=== PATIENT | female | born 1980 | race Caucasian/White ===

== ENCOUNTER 2017-01-11 00:23 | Inpatient (IN) | payer OTHER ==
[~2017-01-11] VITALS: Ht 162.6 cm; Wt 96.0 kg
[~2017-01-11 00:23] MED LIST: PRENATAL-FOLIC1 EACH PO; TUMS300 MG PO
--- NOTE | 2017-01-11 08:55 | NUR ---
01/11/17 0855 Angela Haro 0847 PATIENT ARRIVES TO ROOM 103 AWAKE, DENIES PAIN OR NAUSEA.
--- NOTE | 2017-01-12 09:13 | PR ---
[facility] [address] [facility] [place], [place] [address] Signed PP Progress Notes Datetime Report Generated by CPN: 01/12/2017 09:12 SUBJECTIVE: [id number] Pain: Within normal limits Pain Comments: c/o cough with scratchy throat Nausea/Vomiting: Denies Flatus: Yes Vital Signs: [id number] Vital Signs: Reviewed; Within Normal Limits EXAM: [id number] Cardiovascular: Normal Respiratory: Normal Abdomen/Uterus: Abnormal Lochia: Normal Vulva/Perineum: Not Done Breasts: Not Done CVA Tenderness: Not Done Extremities: Normal Incision: Normal Progress: Abnormal Exam Comments: Abdomen with active BS. Fundus firm, NT @ U. H/H 9.7/27.8, WBC 7.6, plat 147k IMPRESSION/PLAN/PROCEDURES: [id number] Impression: Normal progression Other Impression: URI prob viral Other Plans: ambulate, shower, cepacol lozenges Procedures: None Progress Notes: Doing well overall. She has URI with cough but no fever. Signing Physician: Dee Dee Painting MD CC: *Electronically Signed* 01/12/17 09 DEE DEE PAINTING MD PATIENT NAME: MARJAN DAVIS PROGRESS NOTE DATE OF : 84 PHYSICIAN: DEE DEE PAINTING MD RPT #: [id number] REPORT IS CONFIDENTIAL AND NOT TO BE RELEASED WITHOUT AUTHORIZATION
--- NOTE | 2017-01-20 20:41 | OR ---
[facility] [address] [place], [place] [address] Signed DATE OF PROCEDURE: 01/11/17 SURGEON: Dee Dee Painting MD MANAGER FINANCIAL SERVICES: Oscar Malin MD PREOPERATIVE DIAGNOSES Previous section x3, labor, type 2 diabetes, undesired fertility. POSTOPERATIVE DIAGNOSES Previous section x3, labor, type 2 diabetes, undesired fertility, delivered. PROCEDURE Repeat section with low segment transverse uterine incision, bilateral salpingectomy, lysis of adhesions. ANESTHESIA: Spinal. ESTIMATED BLOOD LOSS: 700 mL. DRAINS: Murphy catheter. INDICATIONS AND FINDINGS The patient is a 36-year-old female, 6, para 3, AB 2, who was admitted at 37 and 2/7 weeks for repeat section after onset of labor. She had been admitted for observation approximately 7 hours previously and had cervical change. At the time of surgery, the lower uterine segment was extremely thin. The baby was delivered with Apgars of 8 and 9 and weight of 10 pounds 10 ounces from the ROT position via lower segment transverse uterine incision. It was a male infant. At the time of abdominal closure there was noted to be some omental adhesions to the peritoneum which required division as well. DESCRIPTION OF PROCEDURE The patient was prepped and draped in the supine position. The previous scar was removed sharply. The incision was then carried down through the fascia with the knife and the incision extended laterally with the Neil scissors. The inferior and superior fascial flaps were then created. The peritoneum was opened sharply and the incision extended superiorly and inferiorly. At this point, the Owen retractor could be placed. The uterine incision was done at the upper aspect of the peritoneal reflection. The uterine wall was extremely thin. Clear fluid was noted at delivery. The baby boy was delivered with the above findings and handed off to the pediatric staff in attendance. The placenta was removed manually. The uterus explored with a lap tape showing no remaining Electronically Signed By: DEE DEE PAINTING MD 01/20/17 2041 PATIENT NAME: MARJAN DAVIS OPERATIVE REPORT DATE OF : 84 PHYSICIAN: DEE DEE PAINTING MD REPORT #: [id number] REPORT IS CONFIDENTIAL AND NOT TO BE RELEASED WITHOUT AUTHORIZATION [facility] [address] [place] [id number] Signed fragments. The edges of the incision were identified and the uterus closed in 2 layers with 0 Monocryl. The first layer was a running locking stitch and the 2nd was a vertical imbricating stitch. The abdomen was then copiously irrigated and inspected and did appear to be hemostatic. At this point, pressure was placed against the lower segment to aid in hemostasis and the tubal ligation was performed. The patient's right tube was identified and grasped with [place] clamps. A window was placed in the mesosalpinx and the tube was removed by placing Agatha clamps across the mesosalpinx and this was divided. The medial portion of the tube was removed in the same manner. The specimen was completely removed. Free ties of 0 Vicryl were used to tie off the mesosalpinx. The same procedure was done on the patient's left side. Good hemostasis was noted. Following this, the uterine incision was re-identified and was hemostatic. The retractor was removed. The peritoneum identified. ACell graft was then laid over the uterine incision to aid in healing. The omental adhesions were primarily on the patient's right side. These were divided with the Agatha clamps and Metzenbaum scissors with free ties of 2-0 chromic placed. The peritoneum appeared to be free as did the omentum. The peritoneum was then closed with running suture of 3-0 Vicryl. The muscles were brought together with interrupted sutures of 2-0 Vicryl. Bleeding points were controlled with cautery. ACell powder was then sprinkled over the muscle to aid in healing. The fascia was then closed from each angle to the midline with running suture of 0 Vicryl. The subcutaneous tissue was irrigated and bleeding points controlled with cautery. The subcu was closed with interrupted sutures of 3-0 Vicryl. The skin was closed with kari. All sponge and needle counts were correct. She tolerated the procedure well and was taken to the recovery room in good condition. Dee Dee Painting MD PJW/Modl /[id number] cc: Oscar Malin MD Electronically Signed By: DEE DEE PAINTING MD 01/20/17 2041 PATIENT NAME: MARJAN DAVIS OPERATIVE REPORT DATE OF : 84 PHYSICIAN: DEE DEE PAINTING MD REPORT #: [id number] REPORT IS CONFIDENTIAL AND NOT TO BE RELEASED WITHOUT AUTHORIZATION
== END 2017-01-13 15:34 | disposition home or self-care (01) | DRG 766 ==
LOC: FBCO 00:23 → FBC 06:50
PROVIDERS: ADMIT Obstetrics & Gynecology
PROC: 0UB70ZZ Excision of Bilateral Fallopian Tubes, Open Approach (ICD-10-PCS; 2017-01-11)
PROC: 10D00Z1 Extraction of Products of Conception, Low, Open Approach (ICD-10-PCS; principal; 2017-01-11 07:00)
DX: O34.211 Maternal care for low transverse scar from previous cesarean delivery (principal); Z3A.37 37 weeks gestation of pregnancy; Z37.0 Single live birth; O24.420 Gestational diabetes mellitus in childbirth, diet controlled; Z28.21 Immunization not carried out because of patient refusal; O99.52 Diseases of the respiratory system complicating childbirth; J06.9 Acute upper respiratory infection, unspecified; Z30.2 Encounter for sterilization
CPT/HCPCS: 01961; 36415; 59025; 85027; 99214; C1763; J0690; J1100; J1644; J2274; J2370; J2405; J2590; J3010; J3105; J7040; J7120

== ENCOUNTER 2023-11-10 09:04 | Observation (INO) | payer OTHER ==
[~2023-11-10] VITALS: Ht 162.6 cm; Wt 70.8 kg
[2023-11-10] VITALS (7 sets, daily range): BP systolic 115–128; BP diastolic 64–76
[2023-11-10] MEDS ORDERED: ondansetron HCL 4 MG/2 ML VIAL IV ONE (09:15)
[2023-11-10] MEDS ORDERED: SODIUM CHLORIDE 0.9% 1,000 ML IV ONE (09:15)
[2023-11-10] MEDS ORDERED: METFORMIN HCL500 MG PO (09:16)
[2023-11-10] MEDS ORDERED: OMEPRAZOLE20 MG PO (09:16)
[2023-11-10] MEDS ORDERED: VITAMIN D21250 MCG PO (09:17)
[2023-11-10] MEDS ORDERED: FREESTYLE LIBR1 EAC2 MC (09:17)
[2023-11-10] MEDS ORDERED: PIOGLITAZONE HC30 MG PO (09:17)
[2023-11-10 09:21] LABS: BILIRUBIN, URINE NEGATIVE (negative); BLOOD/HGB, URINE NEGATIVE (Negative); KETONE, URINE NEGATIVE (Negative); LEUK ESTERASE, URINE NEGATIVE (negative); NITRITE, URINE NEGATIVE (negative); PH, URINE 7.5 (5-7)
[2023-11-10] MEDS ORDERED: KETOROLAC TROMETHAMINE 30 MG/ML VIAL IV ONE (09:30)
[2023-11-10 09:34] LABS: BASOPHILS 0.6 % (0-2); EOSINOPHILS 1.3 % (0-6); HEMATOCRIT 41.2 % (35.0-50.0); HEMOGLOBIN 14.3 g/dL (12.0-18.0); LYMPHOCYTES 21.3 % (24-44); MCH 30.8 (27-36); MCHC 34.7 g/dl (30-36); MCV 88.7 fl (81-99); MONOCYTES 7.3 % (0-12); NEUTROPHILS 69.5 % (39-80); PLATELET COUNT 372 K/uL (140-440); RBC 4.64 M/ul (4.3-5.7); RDW 14.5 (10.5-15.0)
[2023-11-10 09:43] LABS: ALBUMIN/GLOBULIN RATIO 1.18 (1.1-2.4); ANION GAP 11.8 (7-21); BILIRUBIN, TOTAL 0.6 ng/dL (0.2-1.0); BUN/CREATININE RATIO 8.95 (6.0-28.6); CALCIUM 9.1 mg/dL (8.5-10.1); CREATININE, SERUM 0.67 mg/dL (0.55-1.02); POTASSIUM 3.8 mmol/L (3.5-5.1); PROTEIN, TOTAL 7.4 g/dL (6.4-8.2)
[2023-11-10] MEDS ORDERED: LACTATED RINGER'S 1,000 ML IV ONE (10:45)
[2023-11-10] MEDS ORDERED: FAMOTIDINE 20 MG/ 2 ML VIAL IV ONE (10:45)
[2023-11-10] MEDS ORDERED: HEParin SOD (PORCINE) 5,000 UNIT/0.5 ML SYR SUB-Q SCH (10:55)
[2023-11-10] MEDS ORDERED: FAMOTIDINE 20 MG/ 2 ML VIAL IV SCH (10:55)
[2023-11-10] MEDS ORDERED: KETOROLAC TROMETHAMINE 30 MG/ML VIAL IV PRN (11:00)
[2023-11-10] MEDS ORDERED: GLUCAGON,HUMAN RECOMBINANT 1 MG/ML VIAL SUB-Q PRN (11:00)
[2023-11-10] MEDS ORDERED: IBLOOD GLUCOSE TEST STRIP 1 EA TEST XX PRN (11:00)
[2023-11-10] MEDS ORDERED: ondansetron HCL 4 MG/2 ML VIAL IV PRN (11:00)
[2023-11-10] MEDS ORDERED: LACTATED RINGER'S 1,000 ML IV SCH (11:00)
[2023-11-10] MEDS ORDERED: DEXTROSE 50% 50 ML SYR IV PRN ×2 (11:00)
[2023-11-10] MEDS ORDERED: MORPHINE SULFATE 10 MG/ML VIAL IV PRN (11:00)
[2023-11-10] MEDS ORDERED: DEXTROSE 5% 1,000 ML IV PRN (11:00)
[2023-11-10] MEDS ORDERED: HEParin SOD (PORCINE) 5,000 UNIT/0.5 ML SYR ONE (13:17)
[2023-11-10] MEDS ORDERED: CEFAZOLIN SODIUM 2 GM/20 ML SYR IV SCH (14:00)
[2023-11-10] MEDS ORDERED: Insulin Regular, Human 100 UNIT/ML ML SUB-Q SCH (14:00)
[2023-11-10] MEDS ORDERED: IBLOOD GLUCOSE TEST STRIP 1 EA TEST VI SCH (14:00)
[2023-11-11] VITALS (11 sets, daily range): BP systolic 108–134; BP diastolic 65–74
[2023-11-11 05:30] LABS: BASOPHILS 0.6 % (0-2); EOSINOPHILS 1.4 % (0-6); HEMATOCRIT 35.9 % (35.0-50.0); HEMOGLOBIN 12.6 g/dL (12.0-18.0); LYMPHOCYTES 31.3 % (24-44); MCH 30.9 (27-36); MCHC 35.1 g/dl (30-36); MCV 88.3 fl (81-99); MONOCYTES 8.5 % (0-12); NEUTROPHILS 58.2 % (39-80); PLATELET COUNT 318 K/uL (140-440); RBC 4.07 M/ul (4.3-5.7); RDW 14.2 (10.5-15.0)
[2023-11-11 05:45] LABS: ALBUMIN 3.3 g/dL (3.4-5.0); ALBUMIN/GLOBULIN RATIO 1.03 (1.1-2.4); ANION GAP 10.7 (7-21); BILIRUBIN, TOTAL 0.9 ng/dL (0.2-1.0); BUN/CREATININE RATIO 9.83 (6.0-28.6); CALCIUM 8.5 mg/dL (8.5-10.1); CREATININE, SERUM 0.61 mg/dL (0.55-1.02); POTASSIUM 3.7 mmol/L (3.5-5.1); PROTEIN, TOTAL 6.5 g/dL (6.4-8.2)
[2023-11-11] MEDS ORDERED: iopamidoL 30 ML VIAL ONE (10:19)
[2023-11-11] MEDS ORDERED: SODIUM CHLORIDE 0.9% 40 ML IV ONE (10:19)
[2023-11-11] MEDS ORDERED: DEXAMETHASONE SOD PHOS 4 MG/ML VIAL ONE (15:06)
[2023-11-11] MEDS ORDERED: KETOROLAC TROMETHAMINE 30 MG/ML VIAL ONE (15:06)
[2023-11-11] MEDS ORDERED: LIDOCAINE HCL 2% 20 MG/ML VIAL INJ ONE (15:06)
[2023-11-11] MEDS ORDERED: fentaNYL citrate 100 MCG/2 ML VIAL ONE ×2 (15:06→17:02)
[2023-11-11] MEDS ORDERED: LIDOCAINE HCL 2% 5 ML SDV ONE (15:06)
[2023-11-11] MEDS ORDERED: ondansetron HCL 4 MG/2 ML VIAL ONE (15:06)
[2023-11-11] MEDS ORDERED: ROCURONIUM BROMIDE 50 MG/5 ML SYR ONE ×2 (15:06→16:20)
[2023-11-11] MEDS ORDERED: SUGAMMADEX SODIUM 200 MG/2 ML ML ONE (15:06)
[2023-11-11] MEDS ORDERED: ACETAMINOPHEN 1,000 MG/100 ML VIAL ONE (15:06)
[2023-11-11] MEDS ORDERED: SUCCINYLCHOLINE IN 0.9% NACL 200 MG/10 ML SYRINGE ONE (15:06)
[2023-11-11] MEDS ORDERED: propofoL 200 MG/20 ML VIAL ONE (15:06)
[2023-11-11] MEDS ORDERED: MIDAZOLAM HCL 2 MG/2 ML VIAL ONE (15:07)
--- NOTE | 2023-11-11 15:32 | HP ---
[facility] [address] [place], [place] [address] Signed ADMISSION DATE: 11/10/2023 REASON FOR ADMISSION: Acute calculous cholecystitis. HISTORY OF PRESENT ILLNESS: This 43-year-old woman is accompanied by her . They are from [place], [place]. Her primary care provider is LAKEISHA Trivedi in [place]. The patient has had episodic right upper abdominal and epigastric pain often following meals, but usually symptoms passed "within a day." More recently, yesterday she began having significant symptoms with right upper abdominal pain and a "squeezing" sensation in her posterior thorax. She does have underlying type 2 diabetes on oral medications. She presented to the emergency room with unrelenting pain and was evaluated thoroughly by Dr. Stringer. Evaluation included liver enzyme evaluation, which was normal and an ultrasound of the gallbladder which shows gallstones. There was pericholecystic fluid and an equivocal Pepe sign. There is borderline liver enlargement. Consultation was undertaken on the basis of acute calculous cholecystitis. PAST MEDICAL HISTORY: Notable for hysterectomy. She has four children. She does have type 2 diabetes and probable gastroesophageal reflux. CURRENT MEDICINES: Her current medicines at admission include omeprazole, metformin, pioglitazone, and ergocalciferol (vitamin D2). SURGICAL HISTORY: Includes hysterectomy in 2018 and in the past. She does have clinical reflux symptoms. She does not smoke or drink alcohol. 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 She is accompanied by her . They live in [place]. REVIEW OF SYSTEMS: She has improved pain since evaluation and treatment in the emergency room. She has no nausea or vomiting currently. She has had no blood per rectum, diarrhea, or constipation. She has had no hematemesis or blood per rectum. PHYSICAL EXAMINATION: GENERAL: This is a somewhat obese woman who is 5 feet 4 inches in height, 80 Electronically Signed By: PACO AVALOS MD 11/11/23 1532 PATIENT NAME: MARJAN DAVIS HISTORY AND PHYSICAL DATE OF : 84 REPORT #: [id number] PHYSICIAN: PACO AVALOS MD PCP: DEVEN MEZA REPORT IS CONFIDENTIAL AND NOT TO BE RELEASED WITHOUT AUTHORIZATION [facility] [address] [place], [place] [address] Signed kg in weight with a BMI of 30.3. HEENT: Trachea is midline. She has slightly dry mucous membranes. CHEST: Clear. HEART: Regular without murmur. ABDOMEN: Somewhat obese, but soft. There is mild tenderness in the right subcostal area, but no palpable mass. She has no ascites. EXTREMITIES: Show no clubbing, cyanosis, or edema. LABORATORY STUDIES: Show a white count of 12.3, hematocrit 41.2, platelets 372,000. Chem profile was normal. Glucose is 160. Liver enzymes are normal. Beta-HCG is negative. Lipase is normal at 23. Urinalysis is essentially normal. ASSESSMENT: The patient has acute calculous cholecystitis, having had episodic biliary colic along the way already. I have discussed with her in detail with the use of the white board and illustrations of the pathophysiology of this problem. Recommendation of treatment to include cholecystectomy. Unfortunately, the patient ate oatmeal this morning at 8:00 a.m. and does have clinical dehydration currently. I believe that admission to hospital, IV antibiotics, parenteral pain medication, fluid resuscitation, ultimately allowing for cholecystectomy would be most appropriate. The risk of bleeding, infection, bile duct injury need for open procedure, need for laparoscopic or open common duct exploration were all reviewed, she understands. MD ALEVRTO Landis/JUDSONL /[id number] cc: VOLODYMYR Trivedi MD Copies: DEVEN MEZA PAC Electronically Signed By: PACO AVALOS MD 11/11/23 1532 PATIENT NAME: MARJAN DAVIS HISTORY AND PHYSICAL DATE OF : 84 REPORT #: [id number] PHYSICIAN: PACO AVALOS MD PCP: DEVEN MEZA PAC REPORT IS CONFIDENTIAL AND NOT TO BE RELEASED WITHOUT AUTHORIZATION [facility] [address] [place] [id number] Signed RUPERT STRINGER MD ~ Electronically Signed By: PACO AVALOS MD 11/11/23 1532 PATIENT NAME: MARJAN DAVIS HISTORY AND PHYSICAL DATE OF : 84 REPORT #: [id number] PHYSICIAN: PACO AVALOS MD PCP: DEVEN MEZA PAC REPORT IS CONFIDENTIAL AND NOT TO BE RELEASED WITHOUT AUTHORIZATION
[2023-11-11] MEDS ORDERED: LACTATED RINGER'S 1,000 ML IV ONE (15:44)
[2023-11-11] MEDS ORDERED: IBUPROFEN 600 MG TAB PO PRN (18:00)
[2023-11-11] MEDS ORDERED: OXYCODONE/APAP 7.5/325 TAB PO PRN (18:00)
[2023-11-11] MEDS ORDERED: ACETAMINOPHEN 500 MG TAB PO PRN (18:00)
[2023-11-12] VITALS (9 sets, daily range): BP systolic 111–125; BP diastolic 53–73
[2023-11-12 05:27] LABS: BASOPHILS 0.4 % (0-2); EOSINOPHILS 0.1 % (0-6); HEMATOCRIT 34.5 % (35.0-50.0); HEMOGLOBIN 12.3 g/dL (12.0-18.0); LYMPHOCYTES 15.6 % (24-44); MCH 31.3 (27-36); MCHC 35.7 g/dl (30-36); MCV 87.7 fl (81-99); MONOCYTES 8.2 % (0-12); NEUTROPHILS 75.7 % (39-80); PLATELET COUNT 332 K/uL (140-440); RBC 3.93 M/ul (4.3-5.7)
[2023-11-12 05:44] LABS: ALBUMIN/GLOBULIN RATIO 0.91 (1.1-2.4); ANION GAP 12.1 (7-21); BILIRUBIN, TOTAL 0.6 ng/dL (0.2-1.0); BUN/CREATININE RATIO 12.96 (6.0-28.6); CALCIUM 8.6 mg/dL (8.5-10.1); CREATININE, SERUM 0.54 mg/dL (0.55-1.02); POTASSIUM 4.1 mmol/L (3.5-5.1); PROTEIN, TOTAL 6.3 g/dL (6.4-8.2)
[2023-11-12] MEDS ORDERED: IBLOOD GLUCOSE TEST STRIP 1 EA TEST VI SCH (08:00)
[2023-11-12] MEDS ORDERED: Insulin Regular, Human 100 UNIT/ML ML SUB-Q SCH (08:00)
--- NOTE | 2023-11-12 09:20 | OR ---
[facility] [address] [place], [place] [address] Signed DATE OF OPERATION: 11/11/2023 SURGEON: Paco Avalos MD PREOPERATIVE DIAGNOSIS: Acute calculous cholecystitis. POSTOPERATIVE DIAGNOSIS: Severe acute calculous cholecystitis. PROCEDURE: Laparoscopic cholecystectomy with intraoperative cholangiogram, prolonged, complicated, and difficult. ANESTHESIA: General endotracheal, Jan Iraheta CRNA and local 10 mL of 0.25% Marcaine with epinephrine. INDICATION: This 43-year-old woman presented to the emergency room yesterday with findings suggestive of acute calculous cholecystitis. She was thoroughly evaluated by Dr. Kumar and found on gallbladder ultrasound to have multiple gallstones and thickening of the gallbladder wall. Her liver enzymes were normal and the white count was slightly elevated. She had tenderness in the right subcostal area but no palpable mass and no ascites. She has been fluid resuscitated, given intravenous antibiotics, parenteral pain medication and so forth and is now to undergo cholecystectomy for acute calculous cholecystitis. She understands as does her family the risk of bleeding, infection, bile duct injury, need for open procedure as well as other unforeseen complications. Understanding that she wished to proceed. FINDINGS: The gallbladder was quite markedly inflamed and very thickened. Decompression of the gallbladder showed medium green bilious fluid. Cholecystectomy was performed without complication that was challenging due to the thickened nature of the gallbladder and the partially intrahepatic gallbladder itself. Cholangiogram was normal. The gallbladder once excised showed multiple 1.5 cm multifaceted gallstones. DESCRIPTION OF PROCEDURE: The patient was brought to the operating room, given a general endotracheal anesthetic. Preoperative antibiotic Ancef had been given. Sequential compression device stockings Electronically Signed By: PACO AVALOS MD 11/12/23 0920 PATIENT NAME: MARJAN DAVIS OPERATIVE REPORT DATE OF : 84 REPORT #: [id number] PHYSICIAN: PACO AVALOS MD PCP: DEVEN MEZA PAC REPORT IS CONFIDENTIAL AND NOT TO BE RELEASED WITHOUT AUTHORIZATION [facility] [address] [place], [place] [address] Signed were used and heparin subcutaneously administered. The abdomen was prepared with chlorhexidine solution and draped sterilely. An infraumbilical incision was made and using an open Alessia cannula technique pneumoperitoneum was achieved to a level of 14 mmHg of carbon dioxide gas. Intra-abdominal inspection showed a markedly distended and very inflamed gallbladder. Three additional trocars were placed in their usual configuration in the subxiphoid, right midclavicular, and right anterior axillary line. The gallbladder was elevated cephalad and retracted laterally. The gallbladder could not be easily grasped and on that basis, the apex of the gallbladder was punctured with a needle trocar device allowing for decompression of bile, allowing for the puncture site to be more easily grasp. The gallbladder was elevated cephalad and retracted laterally. Using blunt and electrocautery dissection, the gallbladder was dissected free identifying well the cystic duct. A clip was applied across the gallbladder cystic duct junction and a transverse choledochotomy made in the cystic duct. Egress of thickened bile was noted. Using the Mart type cholangiocatheter, intraoperative cholangiography was undertaken showing free flow of contrast in the biliary tree with prompt emptying into the duodenum. There was no sign of filling defect, biliary anomalies, or other problem. The catheter was removed and the cystic duct was triply clipped and divided. The gallbladder was then dissected free in a retrograde fashion. This was particularly challenging due to the thickened nature of the gallbladder, but the avascular plane was maintained throughout. Two separate arterial branches coursing directly below the surface of the gallbladder were secured with clips as well. Finally, the gallbladder was excised completely, placed in an endobag and extracted through the infraumbilical port site. The gallbladder was opened on the back table and found to have subacute and chronic inflammation, had multiple gallstones multifaceted and green in color. They were about 1.5 cm in size. Irrigation was undertaken of the subhepatic space. There was no sign of bile leak, bleeding or other problem. Given the extensive nature of inflammation and swelling, a drain was deemed advisable. This was a 7 mm flat Jose Alberto drain which was placed through the right-sided trocar site and placed in the subhepatic space. Excess irrigation fluid was suctioned free. The trocars were removed under direct visualization showing no sign of bleeding. The infraumbilical fascial incision was reapproximated with interrupted 0 Vicryl suture. Each trocar site was infiltrated with 10 mL of 0.25% Marcaine with epinephrine (in total). The skin was then closed with interrupted 3-0 Vicryl. Steri-Strips were applied. The patient was ultimately extubated and transferred to the recovery room in good condition having suffered no complications. Sponge, needle, and instrument counts reported as correct x3. The operation was prolonged, complicated and difficult related to her severe inflammatory changes of the gallbladder and took 3x longer than usual for successful Electronically Signed By: PACO AVALOS MD 11/12/23 0920 PATIENT NAME: MARJAN DAVIS OPERATIVE REPORT DATE OF : 84 REPORT #: [id number] PHYSICIAN: PACO AVALOS MD PCP: DEVEN MEZA PAC REPORT IS CONFIDENTIAL AND NOT TO BE RELEASED WITHOUT AUTHORIZATION [facility] [address] [place], [place] [address] Signed completion. MD ALVERTO Landis/KRIS /[id number] cc: VOLODYMYR Trivedi MD Copies: DEVEN MEZA PAC ~ Electronically Signed By: PACO AVALOS MD 11/12/23 0920 PATIENT NAME: MARJAN DAVIS OPERATIVE REPORT DATE OF : 84 REPORT #: [id number] PHYSICIAN: PACO AVALOS MD PCP: DEVEN MEZA PAC REPORT IS CONFIDENTIAL AND NOT TO BE RELEASED WITHOUT AUTHORIZATION
[2023-11-12] MEDS ORDERED: IBUPROFEN600 MG PO (14:38)
[2023-11-12] MEDS ORDERED: OXYCODON-ACETA1 EAC2 PO (14:39)
[2023-11-12] MEDS ORDERED: ACETAMINOPHEN500 MG PO (14:39)
--- NOTE | 2023-11-14 11:49 | DS ---
[facility] [address] [place], [place] [address] Signed ADMISSION DATE: 11/10/2023 DISCHARGE DATE: 11/12/2023 REASON FOR ADMISSION: Acute calculous cholecystitis. HISTORY: This 43-year-old woman is accompanied by her and the patient of LAKEISHA Trivedi in [place], though the patient lives in [place], [place]. The patient has had episodic right upper abdominal and epigastric pain. She presented to the emergency room with persistent nonrelenting right subcostal and epigastric pain evaluated thoroughly by Dr. Clifton Stringer with clinical findings suggestive of acute cholecystitis. A gallbladder ultrasound was performed confirming gallstones and somewhat thickened gallbladder wall. Liver enzymes were normal. She is admitted for further evaluation and care. PERTINENT PHYSICAL EXAMINATION: GENERAL: Showed an obese, 5 foot 4 inches, 70.8 kg woman who looked to be in mild discomfort. She had no sign of systemic toxicity. NECK: Trachea is midline. CHEST: Clear. HEART: Regular without murmur. ABDOMEN: Obese, but soft. There is tenderness in the right subcostal area but no palpable mass and no ascites. LABORATORY DATA: White count was 12.3, hematocrit 41.2, and platelets 372,000. Chem profile normal. Glucose 160. Liver enzymes normal. Beta HCG negative. Lipase negative. Urinalysis normal. HOSPITAL COURSE: The patient was given fluid resuscitation, IV antibiotic Ancef and prepared for operation. She underwent laparoscopic cholecystectomy with intraoperative cholangiogram on November 11, 2023. The gallbladder was impressively inflamed and thickened for more so than clinically considered likely. Once excised, the gallbladder confirmed multiple 1.5 cm multifaceted gallstones. Cholangiogram was normal. Given the extent of dissection and so forth, a drain was placed. She had prompt recovery from her surgical pain by day of discharge is ambulating well, tolerating regular diet. The drain showed no sign of bile leak and was removed. Electronically Signed By: PACO AVALOS MD 11/14/23 1149 PATIENT NAME: MARJAN DAVIS DISCHARGE SUMMARY DATE OF : 84 REPORT #: [id number] PHYSICIAN: PACO AVALOS MD PCP: ARCELIA MEZA PAC REPORT IS CONFIDENTIAL AND NOT TO BE RELEASED WITHOUT AUTHORIZATION [address] [address] Signed FOLLOWUP PLAN: She is return to see me in approximately a month. She is to lift no more than 20 pounds for the next two weeks. She will keep Steri-Strips in place and is permitted to shower tomorrow. DISCHARGE MEDICATIONS: Will include: 1. Ibuprofen 600 mg p.o. q.6 hours p.r.n. pain, #30. 2. Oxycodone/Tylenol 7.5/325 1-2 p.o. q.6 hours p.r.n. pain, #6. 3. Tylenol plain 500 mg two tablets p.o. q.6 hours p.r.n. pain. 4. Omeprazole 20 mg p.o. daily. 5. Metformin 500 mg p.o. b.i.d. 6. Pioglitazone 30 mg tablets p.o. daily. 7. Vitamin D2 1250 mcg p.o. weekly. DISCHARGE DIAGNOSES: Acute calculous cholecystitis (severe), status post laparoscopic cholecystectomy with intraoperative cholangiogram November 11, 2023. FOLLOWUP PLAN: She will return to see me in approximately four weeks as described. MD ALVERTO Landis/KRIS /[id number] cc: MD Arcelia Taylor PA-C Copies: CLIFTON STRINGER MD Electronically Signed By: PACO AVALOS MD 11/14/23 1149 PATIENT NAME: MARJAN DAVIS DISCHARGE SUMMARY DATE OF : 84 REPORT #: [id number] PHYSICIAN: PACO AVALOS MD PCP: ARCELIA MEZA PAC REPORT IS CONFIDENTIAL AND NOT TO BE RELEASED WITHOUT AUTHORIZATION [facility] [address] [place] [address] Signed ARCELIA MEZA Electronically Signed By: PACO AVALOS MD 11/14/23 1149 PATIENT NAME: MARJAN DAVIS DISCHARGE SUMMARY DATE OF : 84 REPORT #: [id number] PHYSICIAN: PACO AVALOS MD PCP: ARCELIA MEZA PAC REPORT IS CONFIDENTIAL AND NOT TO BE RELEASED WITHOUT AUTHORIZATION
--- NOTE | 2023-11-15 16:31 | PATH ---
[facility] [address] [place], [place] [address] Signed SPECIMEN(S): A GALLBLADDER WITH STONES SPECIMEN SOURCE: A. GALLBLADDER WITH STONES CLINICAL HISTORY: Acute calculus cholecystitis. FINAL PATHOLOGIC DIAGNOSIS: Gallbladder, cholecystectomy: - Acute and chronic calculous cholecystitis BRP MICROSCOPIC EXAMINATION: Histologic sections of all submitted blocks are examined by light microscopy. These findings, together with the gross examination, support the pathologic diagnosis. GROSS DESCRIPTION: The specimen, labeled and designated "Makayla Davis, " and designated on the requisition "gallbladder with stones," is received in formalin and consists of Specimen: Previously opened gallbladder. Dimensions: 9.5 x 2.8 x 2.7 cm. Serosa: Hardwick and focally congested. Cystic Duct: Inked, unobstructed. Calculi: Multiple [id number]-ccpct smooth, angular stones, aggregate measurement of 5.5 x 5.0 x 1.4 cm. Mucosa: Hardwick-red granular. Wall thickness: 0.2-1.0 cm. Lymph node: No pericystic lymph nodes are grossly identified. Additional: None. Business Editor sections are submitted in (A1). FB (under the direct supervision of a pathologist) The Gross Description was prepared using a voice recognition system. The report was reviewed for accuracy; however, sound-alike word errors, addition and/or deletions may occur. If there is any question about this report, please contact Client Services. ADDITIONAL NOTES: Immunohistochemical and/or in situ hybridization studies if performed in this case included appropriate positive controls that reacted as expected. This PATIENT NAME: MARJAN DAVIS PATHOLOGY DATE OF : 84 REPORT #: [id number] PHYSICIAN: SUNDAR TAVAREZ PCP: DEVEN MEZA PAC REPORT IS CONFIDENTIAL AND NOT TO BE RELEASED WITHOUT AUTHORIZATION [address] [place] [address] Signed test was developed and its performance characteristics determined by [facility]. It has not been cleared or approved by the U.S. Food and Drug Administration. The FDA has determined that such clearance or approval is not necessary. This test is used for clinical purposes. It should not be regarded as investigational or for research. [facility] is certified under the Clinical Laboratory Improvement Amendments of 1988 (CLIA) as qualified to perform high complexity clinical laboratory testing. PERFORMING LABORATORY: Technical component was performed by [facility], [address] [place] [address] (CLIA# [id number]). Professional interpretation was performed by [facility] - [address] [id number] Diagnostician: Jourdan Booth MD Pathologist Electronically Signed 11/15/2023 Copies: ~ PATIENT NAME: MARJAN DAVIS PATHOLOGY DATE OF : 84 REPORT #: [id number] PHYSICIAN: SUNDAR PATHOLOGY PCP: DEVEN MEZA PAC REPORT IS CONFIDENTIAL AND NOT TO BE RELEASED WITHOUT AUTHORIZATION
== END 2023-11-12 15:15 | disposition home or self-care (01) ==
LOC: ED 09:04 → MS 09:06 → ED 10:56 → MS 10:56
PROVIDERS: Emergency Medicine; ADMIT Surgery; ATTEND Surgery
PROC: BF03YZZ Plain Radiography of Gallbladder and Bile Ducts using Other Contrast (ICD-10-PCS; 2023-11-11)
PROC: 0FT44ZZ Resection of Gallbladder, Percutaneous Endoscopic Approach (ICD-10-PCS; principal; 2023-11-11 15:00)
DX: K80.12 Calculus of gallbladder with acute and chronic cholecystitis without obstruction (principal); Z88.1 Allergy status to other antibiotic agents; Z88.2 Allergy status to sulfonamides; E11.9 Type 2 diabetes mellitus without complications; Z79.84 Long term (current) use of oral hypoglycemic drugs
CPT/HCPCS: 00790; 36415; 74300; 76705; 80053; 81003; 83690; 84703; 85025; 96361; 96372; 96374; 96375; 96376; 99285-25; A9270; G0378; J0131; J0330; J0690; J1100; J1644; J1885; J2001; J2250; J2270; J2405; J2704; J3010; J3490; J7030; J7121; Q9967